=== PATIENT | female | born 1965 | race Caucasian/White ===

== ENCOUNTER 2020-09-15 10:25 | Outpatient (CLI) | payer OTHER, SELFPAY ==
[2020-09-15 11:11] LABS: Alanine Aminotransferase 19 U/L (4-35); Aspartate Amino Transferase 23 U/L (14-36)
== END 2020-09-15 10:26 | disposition home or self-care (01) ==
PROVIDERS: Visit Provider Podiatrist Foot & Ankle Surgery
DX: B35.1 Tinea unguium (principal)
CPT/HCPCS: 36415; 84450; 84460

== ENCOUNTER 2021-08-15 12:48 | Emergency (ER) | payer OTHER, SELFPAY ==
--- NOTE | ~2021-08-15 | CT_ITS ---
EXAMINATION: CT abdomen pelvis w con DATE: 08/15/2021 13:45 INDICATION: Right lower quadrant abdominal pain. TECHNIQUE: Computed tomography (CT) of the abdomen and pelvis was performed with 100 mL Omnipaque-350 intravenous contrast. Automated exposure control and iterative reconstruction technique were employe d. The dose-length product was 551.17 mGy-cm. COMPARISON: CT dated 08/31/2014 FINDINGS: Calcified right lower lobe nodule consistent with old granulomatous disease. Heart size is normal. No pericardial or pleural effusion. Liver, gallbladder, spleen, pancreas, left kidney and bilateral adr enal glands are normal. 2 mm nonobstructing stone at a lower pole calyx of the right kidney. Unchange d small region of cortical scarring at the upper pole of the right kidney. 9 mm cyst at the upper darinel e of the right kidney. Bowels including the appendix are normal. Small fat-containing umbilical herni a. Bladder, anteverted uterus and bilateral adnexa are unremarkable. No free intraperitoneal gas or f luid. No pathologically enlarged abdominal or pelvic lymphadenopathy. Mild to moderate disc height lo ss and 3 mm anterolisthesis L4 on L5 with severe bilateral facet osteoarthritis. Otherwise mild lumba r spondylosis. IMPRESSION: 1. No acute intra-abdominal/pelvic process. Normal appendix. 2. 2 mm nonobstructing stone at the lower pole of the right kidney. Reviewed, dictated and finalized at location A.
[2021-08-15 13:03] VITALS: BP 158/97; PULSE 84; RESP 18; TEMP 36.8; O2SAT 93
--- NOTE | 2021-08-15 13:11 | PC.NURSE ---
patient unable to urinate at this time, declines straight cath.
[2021-08-15 13:13] LABS: Basophils Absolute Auto 0.1 K/mm3 (0.0-0.1); Basophils Percent Auto 0.6 % (0.2-1.2); Eosinophils Absolute Auto 0.2 K/mm3 (0-0.3); Hematocrit 46.7 % (37.0-47.0); Immature Granulocyte Absolute 0.04 K/mm3 (0.00-0.031); Immature Granulocyte Percent A 0.4 % (0-0.5); Lymphocytes Absolute Auto 3.76 K/mm3 (0.9-3.2); Lymphocytes Percent Auto 34.9 % (18.3-44.2); Mean Corpuscular HGB Conc 34.3 g/dl (32-36); Mean Corpuscular Hemoglobin 31.5 pg (26-34); Mean Corpuscular Volume 91.9 fl (80-100); Mean Platelet Volume 9.4 fl (7.4-10.4); Monocytes Absolute Auto 0.7 K/mm3 (0.1-0.6); Monocytes Percent Auto 6.3 % (2.6-8.5); Neutrophils Percent Auto 55.8 % (45.5-73.1); Platelet Count Result 246 k/mm3 (150-375); Red Blood Count 5.08 M/mm3 (4.2-5.4); Red Cell Distribution Width 12.4 % (11.5-14.5); White Blood Count 10.8 K/mm3 (4.5-10.0)
[2021-08-15] MEDS: SODIUM CHLORIDE 0.9% IV 1,000 ML 999 ML IV CONT (13:23)
[2021-08-15] MEDS: MORPHINE SULFATE (*CRX) 4 MG/ML INJ IV PUSH (13:23)
[2021-08-15] MEDS: ONDANSETRON INJ 4 MG/2 ML VIAL IV PUSH (13:23)
[2021-08-15 13:24] LABS: Alanine Aminotransferase 29 U/L (4-35); Albumin Level 4.5 g/dL (3.5-5.1); Alkaline Phosphatase 81 U/L (38-126); Anion Gap 10 mmol/L (8-16); Aspartate Amino Transferase 31 U/L (14-36); Bilirubin,Total 0.4 mg/dL (0.2-1.3); Blood Urea Nitrogen 14 mg/dL (7-17); Carbon Dioxide 23 mmol/L (22-30); Chloride 106 mmol/L (98-107); Estimated CRCL calculation 62 ml/min; Estimated Glomerular Filt Rate > 60; Glucose 97 mg/dL (65-110); Lipase 178 U/L (23-300); Potassium 4.2 mmol/L (3.4-5.0); Sodium 139 mmol/L (137-145)
[2021-08-15 15:22] LABS: Add Urine Microscopic? YES; Appearance Urine Cloudy (Clear); Bilirubin Urine Negative (Negative); Blood Urine Negative (Negative); Color Urine Straw (Yellow); Glucose Urine UA Negative (Negative); Ketones Urine Negative (Negative); Leukocyte Esterase Ur Negative LEU/UL (Negative); Mucus Urine Rare /lpf; Nitrate Urine Negative (Negative); Protein Urine Negative (Negative); Squamous Epithelial Cell Urine Many /hpf (Few); Urobilinogen Urine Negative mg/dL (<2.0); WBC Urine 0-3 /hpf
[2021-08-15 15:23] LABS: Specific Grav Ur 1.032 (1.001-1.035)
--- NOTE | 2021-08-15 16:02 | ED.ABDPAIN ---
HPI - Abdominal Pain General Chief Complaint: Abdominal Pain Stated Complaint: right side hurts Time Seen by Provider: 08/15/21 12:58 History of Present Illness HPI narrative: Patient is a 56-year-old female who presents ER with right-sided abdominal pain. Sudden onset. Moving right lower quadrant. Associated with some nausea but no vomiting. No fevers or chills or sweats. No urinary frequency urgency or dysuria. Does have history of kidney stones in the past. Has not found any alleviating factors. Pain is worse with twisting and moving. Related Data Allergies Allergy/AdvReac Type Severity Reaction Status Date / Time codeine Allergy Unknown Nausea and Verified 08/15/21 13:10 Vomiting meperidine Allergy Unknown Unknown Verified 08/15/21 13:10 Review of Systems Review of Systems: All systems reviewed & are unremarkable except as noted in HPI and below Constitutional: Constitutional: Denies chills, Denies fever(s) and Denies weakness ENT: Denies nasal congestion and Denies sore throat Respiratory: Respiratory: Denies cough, Denies dyspnea and Denies wheezing Gastrointestinal: Gastrointestinal: Reports abdominal pain, Denies diarrhea, Reports nausea and Denies vomiting Genitourinary: Genitourinary: Denies nocturia, Denies dysuria and Denies flank pain PMFSH Past Medical History Medical History (Updated 08/15/21 @ 16:08 by Simone Knox MD) Anxiety Asthma Depression Hypertension Surgical History Surgical History (Updated 08/15/21 @ 16:06 by Simone Knox MD) History of tubal ligation Hx of tonsillectomy Social History Social History (Updated 08/15/21 @ 16:06 by Simone Knox MD) Smoking status: Never smoker Exam Narrative: GENERAL: Well-appearing, well-nourished, and in no acute distress. HEAD: Normocephalic, atraumatic. CHEST: Clear to auscultation. No respiratory distress. HEART: Regular rate and rhythm. Normal peripheral pulses. ABDOMEN: Soft, tender palpation right lower quadrant, nondistended, normal active bowel sounds. EXTREMITIES: Normal range of motion. No edema. SKIN: Warm, dry, no rash. NEURO: Alert and oriented x3. PSYCH: Normal mood and affect. Course Course Emergency Course: Patient resting comfortably, received pain medication, repeat evaluation of the abdomen reveals a soft nontender abdomen without right lower tenderness. Patient could have passed a kidney stone. She may have just had intestinal cramping. Imaging unremarkable. Vital Signs Vital signs: Vital Signs Temperature 98.3 F 08/15/21 13:03 Pulse Rate 84 08/15/21 13:03 Respiratory Rate 18 08/15/21 13:03 Blood Pressure 158/97 H 08/15/21 13:03 Pulse Oximetry 93 08/15/21 13:03 Temperature 98.3 F 08/15/21 13:03 Pulse Rate 84 08/15/21 13:03 Respiratory Rate 18 08/15/21 13:03 Blood Pressure 158/97 H 08/15/21 13:03 Pulse Oximetry 93 08/15/21 13:03 MDM - Abdominal Pain Lab Data Result diagrams: 08/15/21 13:03 08/15/21 13:03 Labs: Lab Results 08/15/21 08/15/21 08/15/21 Range/Units 13:03 13:03 15:08 WBC 10.8 H (4.5-10.0) K/mm3 RBC 5.08 (4.2-5.4) M/mm3 Hgb 16.0 H (12.0-15.0) g/dL Hct 46.7 (37.0-47.0) % MCV 91.9 (80-100) fl MCH 31.5 (26-34) pg MCHC 34.3 (32-36) g/dl RDW 12.4 (11.5-14.5) % Plt Count 246 (150-375) k/mm3 MPV 9.4 (7.4-10.4) fl Immature Gran % (Auto) 0.4 (0-0.5) % Neut % (Auto) 55.8 (45.5-73.1) % Lymph % (Auto) 34.9 (18.3-44.2) % [place] % (Auto) 6.3 (2.6-8.5) % Eos % (Auto) 2.0 (0-4.4) % Baso % (Auto) 0.6 (0.2-1.2) % Lymph # (Auto) 3.76 H (0.9-3.2) K/mm3 [place] # (Auto) 0.7 H (0.1-0.6) K/mm3 Eos # (Auto) 0.2 (0-0.3) K/mm3 Baso # (Auto) 0.1 (0.0-0.1) K/mm3 Abs Immat Gran (auto) 0.04 H (0.00-0.031) K/mm3 Absolute Neuts (auto) 6.0 (1.3-6.7) K/mm3 Absolute Nucleated RBC 0.0 (0.0-0.012) K/mm3 Nucleated R
[2021-08-15 16:37] VITALS: BP 142/70; PULSE 78; RESP 16; O2SAT 100
== END 2021-08-15 16:38 | disposition home or self-care (01) ==
PROVIDERS: Emergency Provider Emergency Medicine
DX: R10.31 Right lower quadrant pain (principal); I10 Essential (primary) hypertension; J45.909 Unspecified asthma, uncomplicated; Z87.442 Personal history of urinary calculi
CPT/HCPCS: 36415; 74177; 80053; 81001; 83690; 85025; 96361; 96374; 96375; 99284; J2270; J2405; J7030; Q9967

== ENCOUNTER → 2022-07-13 15:52 | Outpatient (CLI) | payer OTHER, SELFPAY ==
--- NOTE | ~2022-07-13 | CT_ITS ---
EXAMINATION: CT lung screening DATE: 07/13/2022 16:05 INDICATION: Personal history of tobacco dependence. Lung cancer screening. TECHNIQUE: Computed tomography (CT) of the chest was performed without intravenous contrast. The dose -length product was 101.61 mGy-cm. Automated exposure control and iterative reconstruction technique were employed. COMPARISON: None FINDINGS: No thoracic lymphadenopathy. Heart size is normal. No significant pleural or pericardial ef fusion. The upper abdomen is unremarkable. There is apical pleural thickening/scarring. There is emph ysema. No endobronchial lesions. There is a 2-3 mm right upper lobe nodule. There is a calcified gran uloma in the right lower lobe. Mild thoracic spondylosis. IMPRESSION: 1. Lung-RADS category 2: Benign appearance or behavior. Continue annual screening with noncontrast lo w-dose chest CT in 12 months. Reviewed, dictated and finalized at location A. IMPRESSION: 1. Lung-RADS category 2: Benign appearance or behavior. Continue annual screeni ng with noncontrast low-dose chest CT in 12 months.
== END ==
DX: Z12.2 Encounter for screening for malignant neoplasm of respiratory organs (principal); Z87.891 Personal history of nicotine dependence
CPT/HCPCS: 71271

== ENCOUNTER 2023-03-23 13:16 | Observation (INO) | payer OTHER, SELFPAY ==
--- NOTE | ~2023-03-23 | XR_ITS ---
EXAMINATION: XR chest 2V DATE: 03/23/2023 INDICATION: Shortness of breath and cough. TECHNIQUE: Frontal and lateral views of the chest were obtained. COMPARISON: None. FINDINGS: There is mild scarring at the lung apices. No pleural effusion or pneumothorax. The heart s ize is normal. IMPRESSION: 1. Mild scarring at the lung apices. Reviewed, dictated and finalized at location A.
--- NOTE | ~2023-03-23 | US_ITS ---
Duplex Sonography of the bilateral lower extremities: Indication: Swelling Sagittal and transverse B-mode images as well as color-flow imaging were performed on the right and l eft femoral and popliteal veins. B-mode examination was done without and with compression in the tra nsverse plane. There is good visualization of the bilateral common femoral, proximal profunda femora l, superficial femoral, greater saphenous, and popliteal veins. Normal flow was seen on color-flow im aging. Normal compressibility was demonstrated. Visualized calf veins are also patent bilaterally. Impression: No evidence of deep vein thrombosis involving the bilateral lower extremities. Reviewed, dictated and finalized at location M. Impression: No evidence of deep vein thrombosis involving the bilateral lower e xtremities.
--- NOTE | 2023-03-23 16:33 | ECG_ITS ---
Measurements Intervals [place] Rate: 135 P: [place]: 0 QRS: 20 QRSD: 85 T: 45 QT: 292 QTc: 438 Interpretive Statements ATRIAL FIBRILLATION WITH RAPID VENTRICULAR RESPONSE NONSPECIFIC ST & T-WAVE ABNORMALITY ABNORMAL RHYTHM ECG NO PREVIOUS ECG AVAILABLE FOR COMPARISON Electronically Signed On 04-05-2023 13:02:34 CDT by Teri James M.D.
[2023-03-23 20:02] VITALS: PULSE 73; O2SAT 96
--- NOTE | 2023-03-23 20:13 | ADMGEN ---
This patient, Kacey Celaya, was admitted to IMU Room 206-02 on 03/23/231919 . Patient/family oriented to hospital policies and general routines including ID bracelet, bed and alarms, visiting hours, pain management, procedures, bathroom and other care routines, personal items, smoking policy, room service/diet, and visiting hours. Information on how to activate the Rapid Response Team has been discussed. Patient/Family are encouraged to report perceived risks to care and to ask questions if they do not understand what they are told or what they should do.
[2023-03-23 20:58] VITALS: BP 141/76; PULSE 138; RESP 20; TEMP 36.4; O2SAT 97; BMI 32.0
[2023-03-23 21:10] VITALS: PULSE 70
[2023-03-23 23:41] VITALS: BP 109/57; PULSE 86; RESP 20; TEMP 36.4; O2SAT 98
[2023-03-24] VITALS (22 sets, daily range): BP systolic 110–156; BP diastolic 65–81; PULSE 58–90; RESP 16–20; TEMP 36.3–36.6; O2SAT 96–99
--- NOTE | 2023-03-24 | ECHO_ITS ---
Patient Info Name: Kacey Celaya Age: 57 years : 1965 Gender: Female Ht: 64 in Wt: 185 lbs BSA: 1.98 m2 HR: 89 bpm BP: 110 / 71 mmHg Heart Rhythm: Sinus Rhythm Technical Quality: Fair Exam Date: 03/24/2023 11:27 AM Exam Location: [facility] Patient Status: Inpatient Admit Date: 03/23/2023 Staff Ordering Physician: Nicole Osborne PA-C Management Planner: Domenico Lucas RDCS Attending Provider: Maliha Goldman MD Referring Physician: [place] JACK; Exam Type: CA echo doppler color flow Study Info Indications - CHF Complete two-dimensional, color flow and Doppler transthoracic echocardiogram is performed. Summary 1. Complete two-dimensional, color flow and Doppler transthoracic echocardiogram is performed. 2. Left ventricular chamber dimension is normal. 3. There is mildly increased left ventricular wall thickness. 4. Left ventricular systolic function is normal, estimated at 65-70%. 5. Right ventricular chamber dimension is mildly enlarged. 6. Right ventricular systolic function is normal. 7. Right atrial chamber dimension is mildly enlarged. 8. There is mild tricuspid valve regurgitation. 9. There is mild pulmonic regurgitation. Left Ventricle Left ventricular chamber dimension is normal. Left ventricular systolic function is normal, estimated at 65-70%. There is mildly increased left ventricular wall thickness. Right Ventricle Right ventricular chamber dimension is mildly enlarged. Right ventricular systolic function is normal. Left Atria Left atrial chamber dimension is normal. Right Atria Right atrial chamber dimension is mildly enlarged. Atrial Septum Intact interatrial septum visualized by color flow imaging. Aortic Valve The aortic valve is probable trileaflet. There is no aortic valve stenosis. There is no aortic valve regurgitation. Pulmonic Valve The pulmonic valve is not well visualized. There is mild pulmonic regurgitation. Mitral Valve There is trace mitral valve regurgitation. Tricuspid Valve There is mild tricuspid valve regurgitation. Pericardium/Pleural There is no pericardial effusion. Inferior Vena Cava Dilated inferior vena cava with >50% collapse upon inspiration consistent with elevated right atrial pressure, 8 mmHg. Aorta The aortic root size at the sinus of Valsalva is normal. Left Ventricular Outflow Tract Name Value Normal LVOT 2D LVOT Diameter 2.2 cm LVOT Doppler LVOT Peak Gradient 4 mmHg LVOT Mean Gradient 1 mmHg LVOT VTI 16 cm LVOT VTI/AV VTI Ratio 0.7 LVOT Stroke Volume 61 ml LVOT CO 4.3 l/min LVOT CI 2.2 l/min/m2 Pulmonic Valve Name Value Normal PV Doppler PV Peak Gradient 3 mmHg Mitral Valve
[2023-03-24 05:00] LABS: Hematocrit 43.3 % (37.0-47.0); Hemoglobin 14.4 g/dL (12.0-15.0); Mean Corpuscular HGB Conc 33.3 g/dl (32-36); Mean Corpuscular Hemoglobin 31.4 pg (26-34); Mean Corpuscular Volume 94.5 fl (80-100); Mean Platelet Volume 9.9 fl (7.4-10.4); Platelet Count Result 191 k/mm3 (150-375); Red Blood Count 4.58 M/mm3 (4.2-5.4); Red Cell Distribution Width 12.9 % (11.5-14.5); White Blood Count 4.8 K/mm3 (4.5-10.0)
[2023-03-24 05:30] LABS: Alanine Aminotransferase 41 U/L (6-35); Albumin Level 4.1 g/dL (3.5-5.1); Alkaline Phosphatase 68 U/L (38-126); Anion Gap 6 mmol/L (8-16); Aspartate Amino Transferase 44 U/L (14-36); Bilirubin,Total 0.3 mg/dL (0.2-1.3); Blood Urea Nitrogen 16 mg/dL (7-17); Carbon Dioxide 26 mmol/L (22-30); Chloride 105 mmol/L (98-107); Estimated CRCL calculation 90 ml/min; Estimated Glomerular Filt Rate > 60; Glucose 156 mg/dL (65-110); Magnesium 2.1 mg/dL (1.6-2.3); Potassium 4.8 mmol/L (3.4-5.0); Sodium 137 mmol/L (137-145)
--- NOTE | 2023-03-24 05:55 | HP_ITS ---
DATE OF SERVICE: 03/23/2023 TIME OF EVALUATION: 1929 CHIEF COMPLAINT: Shortness of breath. HISTORY OF THE PRESENT ILLNESS: This is a pleasant 57-year-old female smoker with chronic obstructive pulmonary disease, hypertension, and hyperlipidemia who presented to the emergency department via private vehicle from work for evaluation of shortness of breath. The patient provides the following history. She has smoked 2 packs of cigarettes a day since the age of 17 and has only recently began having issues with shortness of breath on exertion. 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 Today while walking 30 feet to deliver an order she became extremely short of breath and wheezy and she felt as though she could not get in a deep breath. She also reports feelings of anxiety quite frequently and she wonders if her shortness of breath may be related to the anxiety. On arrival to the emergency department, she was given a DuoNeb and 40 mg of prednisone p.o. with some improvement in her breathing. Following the nebulizer, she did go into atrial fibrillation with rapid ventricular response with rates up into the 150s and she was then given 30 mg dose of oral diltiazem. She returned briefly into a normal sinus rhythm however she frequently goes back in to brief episodes or atrial fibrillation/flutter. At time she was noted to be bradycardic with rates as low as the 40s. When her heart rate does go up, she gets feelings of anxiety and mild fluttering and perhaps some increase in shortness of breath as well. She has no known history of cardiac dysrhythmia, cardiac disease, or sleep apnea. She denies paroxysmal nocturnal dyspnea, orthopnea, heavy snoring, and daytime somnolence. She does have intermittent lower extremity edema, which is not necessarily unusual for her. She denies calf pain, tenderness, and has no personal or family history of venous thromboembolism. She has occasional chills, but denies fever and sweats. She endorses mild sinus congestion, which is not unusual for her this time of year. On occasion, she has a dry smoker's cough. She has occasional nausea, but no vomiting or diarrhea. She denies sick contacts. She has no known history of thyroid disease. She denies significant caffeine and alcohol use. MEDICAL HISTORY: 1. Hypertension. 2. Hyperlipidemia. 3. Chronic obstructive pulmonary disease. 4. Tobacco dependence. 5. History of esophageal stricture. 6. Anxiety. SURGICAL HISTORY: 1. EGD with esophageal dilatation. 2. Exploratory laparoscopy. 3. Tonsillectomy. 4. Tubal ligation. FAMILY HISTORY: Significant for hypertension, heart disease SOCIAL HISTORY: The patient lives with her , Orion. She has smoked 2 packs of cigarettes a day since the age of 17. She denies alcohol and illicit substance use. She designates her as her surrogate decision maker and she wishes to be a full code. HOME MEDICATIONS: 1. Lisinopril 40 mg at bedtime. 2. Atorvastatin 40 mg at bedtime. 3. Tums 500 mg q.6 hours as needed for acid reflux. 4. Albuterol inhaler q.4 hours as needed for wheezing. ALLERGIES: CODEINE, MEPERIDINE, NICOTINE PATCH. PHYSICAL EXAMINATION: CURRENT VITAL SIGNS: Pulse 86, respiratory rate 20, blood pressure 109/57, pulse ox 98% on room air, temperature 97.6. GENERAL: Mildly ill-appearing female sitting up in bed, in no acute respiratory distress. HEENT: Normocephalic, atraumatic. She is wearing corrective lenses. Pupils are reactive. Extraocular motions intact. Sclerae anicteric. Oral mucosa moist. NECK: Supple. No JVD or ly
[2023-03-24 06:21] LABS: Thyroid Stimulating Hormone Reflex 0.599 uIU/mL (0.465-4.68)
[2023-03-24] MEDS: LEVALBUTEROL NEB 1.25 MG/3 ML INHALATION ×3 (08:11→21:01)
[2023-03-24] MEDS: IPRATROPIUM BR 0.02% INH SOLN 0.5 MG/2.5 ML VIAL INHALATION ×3 (08:11→21:01)
[2023-03-24] MEDS: predniSONE 20 MG TABLET 40 MG PO (08:27)
[2023-03-24] MEDS: ASPIRIN 81 MG CHEWABLE TABLET PO (08:27)
[2023-03-24] MEDS: ENOXAPARIN 40 MG/0.4 ML SYRINGE SUB-Q (09:13)
[2023-03-24] MEDS: ACETAMINOPHEN 325 MG TABLET 650 MG PO (09:56)
--- NOTE | 2023-03-24 10:07 | PM.CNCAR ---
Assessment and Plan Assessment and plan (1) Paroxysmal atrial fibrillation with RVR: Code(s): I48.0 - Paroxysmal atrial fibrillation Status: Acute Assessment and Plan: Patient with very frequent paroxysmal AFib with RVR with heart rates recently running in the 60s to over 200 beats per minute ranging from sinus rhythm to AFib. Patient highly symptomatic with recurrent episodes of atrial fibrillation. We discussed the concept of tachycardia bradycardia syndrome as she was noted to be bradycardic after receiving oral diltiazem 30 mg x 1 in the ER. Will be very cautious with AV ambar blocking agents. We discussed at length this concept and the potential need consider pacemaker implantation if she poorly tolerates any reasonable degree of rate control agents and or remains poorly controlled highly symptomatic AFib with RVR. At this time, no clear indication for pacemaker it we discussed this concern but woke attempt to manage medically given very frequent paroxysm of AFib. Discussed this balance of bleeding versus embolic stroke risk with systemic anticoagulation. We discussed in general potential increased embolic stroke risk, however, CHADS2 Vasc score 2 (female sex, hypertension) does not warrant systemic anticoagulation as her only other non sexual AV risk factors hypertension. Therefore aspirin 81 mg daily will be continued now. If any additional risk factors systemic anticoagulation with be advised. As cardioversion does not appear to have any significant role given the circumstances full systemic anticoagulation is not advised. DVT prophylaxis recommended nonetheless. 2D echocardiogram to assess LV size/function, chamber size, valve pathology pulmonary pressures. Recommendation follow-up review. After extensive discussion will cautiously reintroduce AV ambar blocking agents with metoprolol tartrate 12.5 mg twice daily. If this is adequate in suppressing AFib with RVR without unacceptable and or symptomatic bradycardia continue for now. Continue telemetry. Recommendation to follow pending patient's tolerance medical therapy as discussed. We discussed various options, medical management strategies depending on clinical circumstances as this is highly individual. We discussed the pathophysiology of atrial fibrillation in general. All questions answered patient and her 's satisfaction. They verbalized understanding and agreed with plan of care. No doubt, for COPD exacerbation is contributing as maybe contribute to exacerbation of RVR but this is not the primary explanation for AFib. We discussed the high likelihood of recurrence and need for ongoing monitoring and management clinically appropriate. TSH, electrolytes stable. Low sugar elevated initially, continue to monitor closely. Check hemoglobin A1c. If diabetes mellitus confirmed systemic anticoagulation will be advised either with Eliquis 5 mg twice daily or Xarelto 20 mg at bedtime with discontinuation of aspirin as her CHADS2 Vasc score would then be 3 placing her at higher embolic stroke risk. I spent 74 minutes in the care of this patient at bedside including discussion with patient and her , examination, chart review, medical decision-making, and documentation. (2) COPD exacerbation: Code(s): J44.1 - Chronic obstructive pulmonary disease with (acute) exacerbation Status: Acute Assessment and Plan: Continue bronchodilator therapy with ipratropium bromide, Xopenex, and prednisone 40 mg daily. Management per primary service. (3) Hypertension: Qualifiers: Hypertension type: primary hypertension Qualified Code(s): I10 - Essential (primary) hypertension Code(s): I10 - Essential (primary) hypertension Status: Acute Assessment and Plan: BP elevated but fair control overall. Resume home lisinopril 40 mg daily and monitor BP closely. (4) Mixed hyperlipidemia: Code(s): E78.2 - Mixed hyperlipidemia
[2023-03-24] MEDS: METOPROLOL TARTRATE 12.5 MG TABLET PO ×2 (10:34→20:39)
--- NOTE | 2023-03-24 12:26 | PM.IMPN ---
Progress Note: A&P Assessment and Plan (1) Hypertension: Qualifiers: Hypertension type: primary hypertension Qualified Code(s): I10 - Essential (primary) hypertension Code(s): I10 - Essential (primary) hypertension Status: Acute Assessment and Plan: Blood pressure reviewed 03/24 (2) YUVAL (obstructive sleep apnea): Code(s): G47.33 - Obstructive sleep apnea (adult) (pediatric) Status: Acute (3) Mixed hyperlipidemia: Code(s): E78.2 - Mixed hyperlipidemia Status: Acute (4) Tobacco abuse: Code(s): Z72.0 - Tobacco use Status: Acute (5) COPD exacerbation: Code(s): J44.1 - Chronic obstructive pulmonary disease with (acute) exacerbation Status: Acute Assessment and Plan: Prednisone, breathing treatments, Mucinex (6) Paroxysmal atrial fibrillation with RVR: Code(s): I48.0 - Paroxysmal atrial fibrillation Status: Acute Assessment and Plan: Appreciate cardiology consultation Start metoprolol, monitor Plan DVT prophylaxis with SCDs GI prophylaxis not indicated Code status full code Subjective Date/time seen: 03/24/23 12:26 Interval history: No overnight events noted. No chest pain or shortness of breath. No nausea, vomiting or diarrhea. No fevers or chills. Review of Systems Review of Systems: 12 point review of systems was assessed and was negative except as noted in the HPI Exam Narrative: Temp Pulse Resp BP Pulse Ox O2 Del Method 97.9 F 88 20 156/78 H 96 Room Air 03/24/23 08:00 03/24/23 10:34 03/24/23 08:26 03/24/23 08:00 03/24/23 08:11 03/24/23 08:11 General: No acute distress, alert and oriented per baseline HEENT: Atraumatic, normocephalic, mucous membranes moist CV: Irregularly irregular, S1, S2 Lungs: Wheezes throughout, no crackles, diminished air entry Abdomen: Soft, nontender, nondistended Extremities: Normal to inspection Skin: No rashes noted, no lesions or wounds seen Psych: Euthymic, normal affect Objective Data Vital Signs Vital Signs: Vital Signs - 24 hr 03/23/23 20:58 03/23/23 21:10 03/23/23 21:27 Temperature 97.6 F Pulse Rate 138 H 70 Respiratory Rate 20 Blood Pressure 141/76 H Pulse Oximetry 97 Oxygen Delivery Room Air 03/23/23 20:02 03/23/23 23:41 03/24/23 00:00 Temperature 97.6 F Pulse Rate 73 86 Respiratory Rate 20 Blood Pressure 109/57 L Pulse Oximetry 96 98 Oxygen Delivery Room Air Room Air 03/24/23 00:00 03/24/23 03:34 03/24/23 03:43 Temperature 97.6 F Pulse Rate 79 58 L Respiratory Rate 20 Blood Pressure 110/71 Pulse Oximetry 97 Oxygen Delivery Room Air 03/24/23 04:00 03/24/23 06:00 03/24/23 08:11 Temperature Pulse Rate 59 L 89 Respiratory Rate Blood Pressure Pulse Oximetry 96 Oxygen Delivery Room Air 03/24/23 08:11 03/24/23 08:26 03/24/23 08:00 Temperature 97.9 F Pulse Rate 71 80 68 Respiratory Rate 20 20 16 Blood Pressure 156/78 H Pulse Oximetry 99 Oxygen Delivery 03/24/23 10:34 03/24/23 08:00 03/24/23 10:00 Temperature Pulse Rate 88 90 85 Respiratory Rate Blood Pressure Pulse Oximetry Oxygen Delivery Intake/Output Intake/Output: Intake & Output 03/21/23 03/22/23 03/23/23 03/24/23 23:59 23:59 23:59 23:59 Intake Total 500 Output Total 800 Balance -300 Meds/Results Medications: Active Medications Generic Name Dose Route Start Last Admin Trade Name Freq PRN Reason Stop Dose Admin Acetaminophen 650 mg 03/23/23 21:07 03/24/23 09:56 Acetaminophen 325 Mg Tablet PO 650 mg Q6H PRN Administration PAIN/FEVER Albuterol 2 puff 03/24/23 12:11 Albuterol Sulfate (*Sp) Aerosol 1 Puff INHALATION Q4H PRN
[2023-03-24 12:43] LABS: Chloride 105 mmol/L (98-107); Potassium 3.9 mmol/L (3.4-5.0); Sodium 138 mmol/L (137-145)
[2023-03-24 12:44] LABS: Anion Gap 6 mmol/L (8-16); Blood Urea Nitrogen 18 mg/dL (7-17); Calcium 9.2 mg/dL (8.4-10.2); Carbon Dioxide 27 mmol/L (22-30); Estimated CRCL calculation 69 ml/min; Estimated Glomerular Filt Rate > 60; Glucose 79 mg/dL (65-110); Troponin I < 0.012 ng/mL (0.000-0.034)
[2023-03-24 12:45] LABS: Basophils Percent Auto 0.6 % (0.2-1.2); Eosinophils Percent Auto 4.6 % (0-4.4); Hematocrit 46.4 % (37.0-47.0); Hemoglobin 15.8 g/dL (12.0-15.0); Immature Granulocyte Absolute 0.02 K/mm3 (0.00-0.031); Immature Granulocyte Percent A 0.3 % (0-0.5); Lymphocytes Percent Auto 41.1 % (18.3-44.2); Mean Corpuscular HGB Conc 34.1 g/dl (32-36); Mean Corpuscular Hemoglobin 31.9 pg (26-34); Mean Corpuscular Volume 93.7 fl (80-100); Mean Platelet Volume 10.3 fl (7.4-10.4); Monocytes Percent Auto 10.5 % (2.6-8.5); Neutrophils Percent Auto 42.9 % (45.5-73.1); Platelet Count Result 206 k/mm3 (150-375); Red Blood Count 4.95 M/mm3 (4.2-5.4)
[2023-03-24 12:46] LABS: Eosinophils Absolute Auto 0.3 K/mm3 (0-0.3); Lymphocytes Absolute Auto 2.89 K/mm3 (0.9-3.2); Monocytes Absolute Auto 0.7 K/mm3 (0.1-0.6)
[2023-03-24] MEDS: CALCIUM CARBONATE (TUMS) 500 MG (200 MG ELEMENTAL) PO (18:21)
[2023-03-24] MEDS: ATORVASTATIN 40 MG TABLET PO (20:39)
[2023-03-24] MEDS: guaiFENesin 600 MG/DEXTROMETHORPHAN 30 MG SR TAB 12 HR 1 TAB PO (20:39)
[2023-03-24] MEDS: lisinopriL 20 MG TABLET 40 MG PO (20:39)
[2023-03-25] VITALS (13 sets, daily range): BP systolic 134–150; BP diastolic 67–81; PULSE 46–74; RESP 16–20; TEMP 35.8–36.7; O2SAT 97–99
[2023-03-25] MEDS: LEVALBUTEROL NEB 1.25 MG/3 ML INHALATION ×3 (02:30→13:06)
[2023-03-25] MEDS: IPRATROPIUM BR 0.02% INH SOLN 0.5 MG/2.5 ML VIAL INHALATION ×3 (02:31→13:07)
[2023-03-25] MEDS: CALCIUM CARBONATE (TUMS) 500 MG (200 MG ELEMENTAL) PO ×2 (04:06→10:34)
[2023-03-25 04:41] LABS: Basophils Percent Auto 0.2 % (0.2-1.2); Eosinophils Percent Auto 0.1 % (0-4.4); Hematocrit 41.8 % (37.0-47.0); Hemoglobin 13.8 g/dL (12.0-15.0); Immature Granulocyte Absolute 0.05 K/mm3 (0.00-0.031); Immature Granulocyte Percent A 0.5 % (0-0.5); Lymphocytes Percent Auto 26.2 % (18.3-44.2); Mean Corpuscular Hemoglobin 31.6 pg (26-34); Mean Corpuscular Volume 95.7 fl (80-100); Mean Platelet Volume 9.7 fl (7.4-10.4); Monocytes Percent Auto 9.7 % (2.6-8.5); Neutrophils Absolute Auto 6.5 K/mm3 (1.3-6.7); Neutrophils Percent Auto 63.3 % (45.5-73.1); Platelet Count Result 182 k/mm3 (150-375); Red Blood Count 4.37 M/mm3 (4.2-5.4); Red Cell Distribution Width 12.9 % (11.5-14.5); White Blood Count 10.3 K/mm3 (4.5-10.0)
[2023-03-25 04:52] LABS: Alanine Aminotransferase 35 U/L (6-35); Albumin Level 3.9 g/dL (3.5-5.1); Alkaline Phosphatase 56 U/L (38-126); Anion Gap 5 mmol/L (8-16); Aspartate Amino Transferase 32 U/L (14-36); Bilirubin,Total 0.3 mg/dL (0.2-1.3); Blood Urea Nitrogen 17 mg/dL (7-17); Calcium 9.3 mg/dL (8.4-10.2); Carbon Dioxide 27 mmol/L (22-30); Chloride 106 mmol/L (98-107); Estimated CRCL calculation 79 ml/min; Estimated Glomerular Filt Rate > 60; Glucose 110 mg/dL (65-110); Potassium 4.3 mmol/L (3.4-5.0); Sodium 138 mmol/L (137-145)
[2023-03-25] MEDS: ENOXAPARIN 40 MG/0.4 ML SYRINGE SUB-Q (08:32)
[2023-03-25] MEDS: predniSONE 20 MG TABLET 40 MG PO (08:32)
[2023-03-25] MEDS: ASPIRIN 81 MG CHEWABLE TABLET PO (08:32)
[2023-03-25] MEDS: METOPROLOL TARTRATE 12.5 MG TABLET PO (08:32)
[2023-03-25] MEDS: guaiFENesin 600 MG/DEXTROMETHORPHAN 30 MG SR TAB 12 HR 1 TAB PO (08:33)
[2023-03-25] MEDS: ALPRAZolam (*CRX) 0.125 MG TABLET PO (10:34)
--- NOTE | 2023-03-25 10:44 | PM.PNCARD ---
Progress Note: A&P Assessment and Plan (1) Paroxysmal atrial fibrillation with RVR: Code(s): I48.0 - Paroxysmal atrial fibrillation Status: Acute Assessment and Plan: Patient with very frequent paroxysmal AFib with RVR with heart rates recently running in the 60s to over 200 beats per minute ranging from sinus rhythm to AFib. Patient highly symptomatic with recurrent episodes of atrial fibrillation. Caution with AV ambar blocking agents as she became bradycardic after receiving IV diltiazem in the ED. So far she has not had any significant bradycardia or pauses on low dose metoprolol. Heart rate generally in the 50's but down to 40's during hours of sleep. BP stable. Continue metoprolol 12.5mg q12h. 14 day outpatient engine monitor at discharge. OK for discharge home today. Low sugar elevated initially, continue to monitor closely. Check hemoglobin A1c. If diabetes mellitus confirmed systemic anticoagulation will be advised either with Eliquis 5 mg twice daily or Xarelto 20 mg at bedtime with discontinuation of aspirin as her CHADS2 Vasc score would then be 3 placing her at higher embolic stroke risk. Echo showed normal LVSF, EF 65 - 70%. No significant valve pathology. (2) COPD exacerbation: Code(s): J44.1 - Chronic obstructive pulmonary disease with (acute) exacerbation Status: Acute Assessment and Plan: Continue bronchodilator therapy with ipratropium bromide, Xopenex, and prednisone 40 mg daily. Management per primary service. (3) Hypertension: Qualifiers: Hypertension type: primary hypertension Qualified Code(s): I10 - Essential (primary) hypertension Code(s): I10 - Essential (primary) hypertension Status: Acute Assessment and Plan: BP elevated but fair control overall. Resume home lisinopril 40 mg daily and monitor BP closely. (4) Mixed hyperlipidemia: Code(s): E78.2 - Mixed hyperlipidemia Status: Acute Assessment and Plan: Continue atorvastatin 40 mg at bedtime. Check lipid panel. (5) YUVAL (obstructive sleep apnea): Code(s): G47.33 - Obstructive sleep apnea (adult) (pediatric) Status: Acute Assessment and Plan: Outpatient workup needs formal sleep study evaluation. Presence of underlying untreated YUVAL certainly will increased risk for any arrhythmia as well as atrial fibrillation recurrence. (6) Tobacco abuse: Code(s): Z72.0 - Tobacco use Status: Acute Assessment and Plan: Smoking cessation counseling performed. Subjective Date/time seen: 03/25/23 10:44 Cardiology follow up for atrial fibrillation Interval history: She is feeling well today. Has complaint of acid reflux. No palpitations, chest pain, shortness of breath, swelling. Eager to go home. Review of Systems Review of Systems: Remainder of the review of systems is otherwise negative aside from that noted in the HPI. All systems reviewed & are unremarkable except as noted in HPI and below Constitutional: Constitutional: Reports as per HPI and Reports no additional constitutional complaints Eyes: Eyes: Reports as per HPI and Reports no additional eye complaints ENT: Reports system reviewed and no additional complaints, except as documented and Reports as per HPI Cardiovascular: Cardiovascular: Reports as per HPI and Reports no additional cardiovascular complaints Respiratory: Respiratory: Reports as per HPI and Reports no additional respiratory complaints Gastrointestinal: Gastrointestinal: Reports as per HPI and Reports no additional gastrointestinal complaints Genitourinary: Genitourinary: Reports as per HPI Musculoskeletal: Musculoskeletal: Reports no additional musculoskeletal complaints and Reports as per HPI Integumentary/Breasts: Skin/Breast: Reports system reviewed and no additional complaints, except as docu and Reports as per HPI Neurologic: Reports system reviewed and no additional compla
[2023-03-25] MEDS: PANTOPRAZOLE 40 MG TABLET PO (11:42)
[2023-03-25 11:43] LABS: Hemoglobin A1C 5.4 % (<5.7)
--- NOTE | 2023-03-25 13:31 | PM.DS ---
DS: Admitting Diagnosis Discharge Date 03/25/23 Admitting Diagnosis sob DS: Discharge Diagnosis Discharge Diagnosis (1) Hypertension: Qualifiers: Hypertension type: primary hypertension Qualified Code(s): I10 - Essential (primary) hypertension Code(s): I10 - Essential (primary) hypertension Status: Acute Assessment and Plan: Blood pressure reviewed 03/24 (2) YUVAL (obstructive sleep apnea): Code(s): G47.33 - Obstructive sleep apnea (adult) (pediatric) Status: Acute (3) Mixed hyperlipidemia: Code(s): E78.2 - Mixed hyperlipidemia Status: Acute (4) Tobacco abuse: Code(s): Z72.0 - Tobacco use Status: Acute (5) COPD exacerbation: Code(s): J44.1 - Chronic obstructive pulmonary disease with (acute) exacerbation Status: Acute Assessment and Plan: Prednisone, breathing treatments, Mucinex (6) Paroxysmal atrial fibrillation with RVR: Code(s): I48.0 - Paroxysmal atrial fibrillation Status: Acute Assessment and Plan: Appreciate cardiology consultation Start metoprolol, monitor Plan DVT prophylaxis with SCDs GI prophylaxis not indicated Code status full code DS: Summary Hospital Course Hospital Course: 57-year-old female with history of tobacco dependence, COPD, hypertension hyperlipidemia is presenting for evaluation of shortness of breath. She states she has also been having palpitations that she was initially concerned or anxiety. However, she has also been wheezing and noted some chest tightness. Cardiology was consulted and started her on a low-dose of metoprolol. Symptoms were thought to be secondary to AFib with RVR versus tachy-michelle syndrome. She was not a candidate for anticoagulation an echo was within normal limits. A1c was 5.4. Therefore they recommended discharge home with an event monitor and outpatient follow-up with Cardiology. COPD exacerbation dramatically improved with prednisone and nebulizer treatments. See above and med rec for details. Smoking cessation recommended and discussed with patient extensively. Time Spent with Patient Time attestation: Total time spent providing and/or coordinating discharge services: Exam Narrative: Temp Pulse Resp BP Pulse Ox O2 Del Method 98.0 F 55 L 16 148/79 H 98 Room Air 03/25/23 12:03/25/23 12:00 03/25/23 12:03/25/23 12:03/25/23 12:03/25/23 06:50 General: Patient resting comfortably in bed, no acute distress HEENT: Atraumatic, normocephalic, mucous membranes moist CV: Regular rate and rhythm, S1, S2, no murmurs rubs or gallops noted Lungs: Clear to auscultation bilaterally, no rales or crackles noted, no wheezes, good air entry Abdomen: Soft, nontender, nondistended Extremities: Normal to inspection, no edema noted Skin: No rashes noted, no lesions or wounds seen Psych: Euthymic, normal affect Neuro: Cranial nerves 2-12 grossly intact, strength 5/5 upper and lower extremities noted DS: Data Data Completed and Pending Labs on day of discharge: Labs from last 24 hours 03/25/23 03/25/23 04:25 04:22 WBC 10.3 H RBC 4.37 Hgb 13.8 Hct 41.8 MCV 95.7 MCH 31.6 MCHC 33.0 RDW 12.9 Plt Count 182 MPV 9.7 Immature Gran % (Auto) 0.5 Neut % (Auto) 63.3 Lymph % (Auto) 26.2 [place] % (Auto) 9.7 H Eos % (Auto) 0.1 Baso % (Auto) 0.2 Lymph # (Auto) 2.70 [place] # (Auto) 1.0 H Eos # (Auto) 0.0 Baso # (Auto) 0.0 Abs Immat Gran (auto) 0.05 H Absolute Neuts (auto) 6.5 Absolute Nucleated RBC 0.0 Nucleated RBC % 0.0 Sodium 138 Potassium 4.3 Chloride 106 Carbon Dioxide 27 Anion Gap 5 L BUN 17 Creatinine 0.70 Estim Creat Clear Calc 79 Estimated GFR > 60 Glucose 110 Hemoglobin
== END 2023-03-25 13:57 | disposition home or self-care (01) ==
LOC: ANHED 17:18 → ANHIMU 19:29
PROVIDERS: Nurse Practitioner; Physician Assistant; Admitting Provider Internal Medicine; Emergency Provider Internal Medicine; Visit Provider Student in an Organized Health Care Education/Training Program
DX: J44.1 Chronic obstructive pulmonary disease with (acute) exacerbation (principal); I10 Essential (primary) hypertension; G47.33 Obstructive sleep apnea (adult) (pediatric); E78.2 Mixed hyperlipidemia; J02.9 Acute pharyngitis, unspecified; R68.83 Chills (without fever); R09.81 Nasal congestion; I48.0 Paroxysmal atrial fibrillation; R00.1 Bradycardia, unspecified; R60.0 Localized edema; J98.4 Other disorders of lung; F41.9 Anxiety disorder, unspecified; I07.1 Rheumatic tricuspid insufficiency; I37.1 Nonrheumatic pulmonary valve insufficiency; F17.210 Nicotine dependence, cigarettes, uncomplicated; F12.90 Cannabis use, unspecified, uncomplicated; Z79.51 Long term (current) use of inhaled steroids; Z79.899 Other long term (current) drug therapy
CPT/HCPCS: 36415; 71046; 80048; 80053; 83036; 83735; 84443; 84484; 85025; 85027; 93005; 93306; 93970; 94640; 94762; 96361; 96372; 96374; 99285; A9270; G0378; J1650; J7120; J7512

== ENCOUNTER 2023-05-13 14:12 | Outpatient (CLI) | payer OTHER, SELFPAY ==
--- NOTE | ~2023-05-13 | US_ITS ---
EXAMINATION: US venous doppler UE LT DATE: 05/13/2023 15:02 INDICATION: Left upper limb pain. TECHNIQUE: Grayscale ultrasound images without and with compression and Doppler ultrasound images of the left upper extremity veins were obtained. COMPARISON: None. FINDINGS: The visualized portions of the left internal jugular vein, subclavian vein, axillary vein, brachial v eins, basilic vein, cephalic vein, radial vein, and ulnar vein are patent. IMPRESSION: 1. No deep venous thrombosis. Reviewed, dictated and finalized at location B.
== END 2023-05-13 14:13 | disposition home or self-care (01) ==
PROVIDERS: Visit Provider Nurse Practitioner Adult Health
DX: M79.602 Pain in left arm (principal); R20.0 Anesthesia of skin
CPT/HCPCS: 93971

== ENCOUNTER 2023-07-10 18:14 | Emergency (ER) | payer OTHER, SELFPAY ==
[2023-07-10] VITALS (21 sets, daily range): BP systolic 119–153; BP diastolic 71–107; PULSE 69–92; RESP 11–25; TEMP 36.8; O2SAT 96–100
--- NOTE | ~2023-07-10 | XR_ITS ---
EXAMINATION: XR chest 1V portable Exam Date/Time: 07/10/2023 18:52 CDT HISTORY: chest pain Comparison: 03/23/2023. RESULT: Lines, tubes, and devices: None. Lungs and pleura: Clear. Cardiomediastinal silhouette: Stable. Other: No acute osseous or upper abdominal finding. IMPRESSION: No acute cardiopulmonary process. Reviewed, dictated and finalized at location K.
--- NOTE | ~2023-07-10 | CT_ITS ---
EXAMINATION: CTA chest PE protocol DATE: 07/10/2023 20:54 INDICATION: chest pain TECHNIQUE: Computed tomography angiography (CTA) of the chest was performed with 100 mL Omnipaque-350 intravenous contrast timed to evaluate the pulmonary arteries. Coronal maximum intensity projection 3D-reconstructions were created by the technologist. The dose-length product (DLP) was 673.71 mGy-cm. Automated exposure control and iterative reconstruction technique were employed. COMPARISON: X-ray chest, same date; CT lung screening 07/13/2022. FINDINGS: Lung parenchyma and airways: Stable 2 mm right upper lobe nodule. Granulomatous calcification. Pleura: Unremarkable. Thoracic inlet, axillae and chest wall: Unremarkable. Thoracic aorta: Normal. Mediastinum: Normal. Heart and pericardium: Normal. Coronary artery calcifications: Absent. Upper abdomen: No significant finding. Bones: No acute osseous finding. Pulmonary arteries: Study quality: Adequate. No pulmonary emboli detected. IMPRESSION: No CT evidence of acute pulmonary embolus. No acute intrathoracic process detected. Reviewed, dictated and finalized at location K. IMPRESSION: No CT evidence of acute pulmonary embolus. No acute intrathoracic process detec dennis.
--- NOTE | 2023-07-10 18:24 | ECG_ITS ---
Measurements Intervals [place] Rate: 76 P: 22 WV: 133 QRS: 11 QRSD: 77 T: 6 QT: 371 QTc: 417 Interpretive Statements SINUS RHYTHM LOW QRS VOLTAGE IN PRECORDIAL LEADS [QRS DEFLECTION < 1.0 mV IN CHEST LEADS] SEPTAL MYOCARDIAL INFARCTION , OF INDETERMINATE AGE [40+ ms Q WAVE IN V1/V2] ABNORMAL ECG COMPARED TO ECG 03/23/2023 16:33:24 SINUS RHYTHM REPLACES ATRIAL FIBRILLATION Electronically Signed On 07-11-2023 13:28:42 CDT by Arie Meza M.D.
[2023-07-10 18:51] LABS: Basophils Absolute Auto 0.1 K/mm3 (0.0-0.1); Basophils Percent Auto 1.3 % (0.2-1.2); Eosinophils Absolute Auto 0.4 K/mm3 (0-0.3); Eosinophils Percent Auto 5.8 % (0-4.4); Hematocrit 41.6 % (37.0-47.0); Hemoglobin 13.9 g/dL (12.0-15.0); Immature Granulocyte Absolute 0.02 K/mm3 (0.00-0.031); Immature Granulocyte Percent A 0.3 % (0-0.5); Lymphocytes Absolute Auto 2.74 K/mm3 (0.9-3.2); Lymphocytes Percent Auto 40.5 % (18.3-44.2); Mean Corpuscular HGB Conc 33.4 g/dl (32-36); Mean Corpuscular Volume 92.7 fl (80-100); Mean Platelet Volume 9.2 fl (7.4-10.4); Monocytes Absolute Auto 0.7 K/mm3 (0.1-0.6); Monocytes Percent Auto 10.9 % (2.6-8.5); Neutrophils Absolute Auto 2.8 K/mm3 (1.3-6.7); Neutrophils Percent Auto 41.2 % (45.5-73.1); Platelet Count Result 217 k/mm3 (150-375); Red Blood Count 4.49 M/mm3 (4.2-5.4); Red Cell Distribution Width 12.2 % (11.5-14.5); White Blood Count 6.8 K/mm3 (4.5-10.0)
[2023-07-10] MEDS: ASPIRIN 81 MG CHEWABLE TABLET 324 MG PO (18:54)
[2023-07-10 19:01] LABS: Alanine Aminotransferase 28 U/L (6-35); Albumin Level 4.3 g/dL (3.5-5.1); Alkaline Phosphatase 58 U/L (38-126); Anion Gap 8 mmol/L (8-16); Aspartate Amino Transferase 31 U/L (14-36); Bilirubin,Total 0.5 mg/dL (0.2-1.3); Blood Urea Nitrogen 20 mg/dL (7-17); Calcium 9.8 mg/dL (8.4-10.2); Carbon Dioxide 25 mmol/L (22-30); Chloride 102 mmol/L (98-107); Estimated CRCL calculation 74 ml/min; Estimated Glomerular Filt Rate > 60; Glucose 136 mg/dL (65-110); Lipase 283 U/L (23-300); Potassium 3.9 mmol/L (3.4-5.0); Sodium 135 mmol/L (137-145)
[2023-07-10 19:02] LABS: INR 1.1; Prothrombin Time 14.2 Seconds (11.1-14.7)
[2023-07-10 19:03] LABS: Partial Thromboplastin Time 31.8 SECONDS (22.3-36.8)
[2023-07-10 19:13] LABS: Troponin I < 0.012 ng/mL (0.000-0.034)
--- NOTE | 2023-07-10 20:29 | ED.CHESTPAIN ---
HPI - Chest Pain General Chief Complaint: Chest Pain Stated Complaint: chest pain post ablation Time Seen by Provider: 07/10/23 19:11 History of Present Illness HPI narrative: Patient presents the emergency department with her spouse after having chest tightness since 2 PM. She had a cardiac ablation for atrial fibrillation done a month ago. She has had burning epigastric pain since. Her grey inspector told her having burning pain for a week or 2 was normal but has been longer. She states she probably had a cardiac cath done a couple weeks prior to the ablation but is not 100% certain. Today when she is having episodes of left-sided chest tightness she also has diaphoresis and is feeling chilled. Denies headache nausea vomiting and abdominal pain. She states she also had a recent abnormal mammogram and is concerned that the discomfort might be related to that. Patient takes Eliquis daily. Had the ablation done at outside hospital Related Data Home Medications Medication Instructions Recorded Confirmed albuterol sulfate 90 mcg/actuation 2 inh inhalation Q4H PRN Wheezing 03/23/23 03/23/23 aerosol inhaler atorvastatin 40 mg tablet 40 mg PO HS 03/23/23 03/23/23 calcium carbonate 200 mg calcium 500 mg PO Q6H PRN Acid Reflux 03/23/23 03/23/23 (500 mg) chewable tablet (Tums) lisinopril 40 mg tablet 40 mg PO HS 03/23/23 03/23/23 Allergies Allergy/AdvReac Type Severity Reaction Status Date / Time codeine Allergy Unknown Nausea and Verified 07/10/23 18:24 Vomiting meperidine Allergy Unknown Unknown Verified 07/10/23 18:24 nicotine AdvReac Swelling Verified 07/10/23 18:24 Review of Systems Review of Systems: CONSTITUTIONAL: Denies fever, chills, or sweats. EYES: Denies visual changes, redness, or discharge. ENT: Denies rhinorrhea, congestion, sore throat, or otalgia. CARDIOVASCULAR: Denies palpitations, or edema. Has chest pain RESPIRATORY: Denies cough or dyspnea. GASTROINTESTINAL: Denies abdominal pain, nausea, vomiting, or diarrhea. GENITOURINARY: Denies dysuria or hematuria. SKIN: Denies rash or itching. MUSCULOSKELETAL: Denies back pain, joint pain, or myalgia. NEUROLOGIC: Denies headache, numbness, or weakness. PSYCHIATRIC: Denies anxiety or depression. [facility] Past Medical History Medical History (Updated 07/11/23 @ 00:25 by Felicity Gunderson MD) Anxiety Asthma Depression Hypertension Surgical History Surgical History History of tubal ligation Hx of tonsillectomy Family History Family History Sibling Cardiac defibrillator in place Grandparent Pancreatic cancer Colon cancer Social History Social History Smoking packs per day: 2 Smoking cigarettes per day: 40.0 Years smoked: 40 Smoking pack-years: 80.00 Smoking status: Current every day smoker Tobacco type: cigarettes Alcohol intake: never Substance use type: marijuana Lack of Transportation: No Lack of Food: Never True Current Housing: I Have Housing Concerned About Future Housing: No Difficulty Paying Gas/Electric Bills: No Difficulty Paying for Meds: No Currently Unemployed: No Education: High School Diploma/GED Difficulty w/ Childcare or Family Care: No Spiritual care concerns: No Exam Narrative: GENERAL: Well-appearing, well-nourished, and in no acute distress. HEAD: Normocephalic, atraumatic. EYES: PERRLA and EOMI. ENT: Nares clear, no rhinorrhea or epistaxis. Mucous membranes moist. NECK: Supple. CHEST: Clear to auscultation. No respiratory distress. HEART: Regular rate and rhythm. ABDOMEN: Soft, nontender, nondistended. EXTREMITIES: Normal range of motion. No edema. SKIN: Warm, dry, no rash. NEURO: No focal deficits. Alert and oriented x3. PSYCH: Normal mood and affect. Course Course Emergency Course: D
[2023-07-10 23:40] LABS: Troponin I < 0.012 ng/mL (0.000-0.034)
[2023-07-11] VITALS: PULSE 68; RESP 16
[2023-07-11 00:01] VITALS: BP 132/66; PULSE 68; RESP 10
[2023-07-11 00:15] VITALS: PULSE 69; RESP 15
== END 2023-07-11 00:35 | disposition home or self-care (01) ==
PROVIDERS: Emergency Medicine; Emergency Provider Emergency Medicine
DX: R07.89 Other chest pain (principal); I48.0 Paroxysmal atrial fibrillation; J45.909 Unspecified asthma, uncomplicated; I10 Essential (primary) hypertension; F17.210 Nicotine dependence, cigarettes, uncomplicated; Z79.82 Long term (current) use of aspirin; R94.31 Abnormal electrocardiogram [ECG] [EKG]
CPT/HCPCS: 36415; 71045; 71275; 80053; 83690; 84484; 85025; 85610; 85730; 93005; 99284; A9270; Q9967

== ENCOUNTER 2024-07-06 16:30 | Emergency (ER) | payer OTHER, SELFPAY ==
--- NOTE | ~2024-07-06 | US_ITS ---
EXAMINATION: US pelvic complete DATE: 07/06/2024 20:13 INDICATION: heavy vaginal bleeding, post-menopause TECHNIQUE: Multiple transabdominal sonographic images of the pelvis were obtained. COMPARISON: None. FINDINGS: Uterus: 6.3 x 3.7 x 5.4 cm. Endometrial complex measures 4 mm. Right Ovary: Not visualized. Left Ovary: Not visualized. There is no free fluid in the pelvis. IMPRESSION: Bilateral ovaries not visualized in this transabdominal examination. Sonographically normal-appearing uterus and endometrium. Reviewed, dictated and finalized at location K.
--- NOTE | ~2024-07-06 | CT_ITS ---
EXAMINATION: CT abdomen pelvis w con DATE: 07/06/2024 21:10 INDICATION: heavy vaginal bleeding, post menopause TECHNIQUE: Computed tomography (CT) of the abdomen and pelvis was performed with 100 mL Omnipaque-350 intravenous contrast. Automated exposure control and iterative reconstruction technique were employe d. The dose-length product was 1180.19 mGy-cm. COMPARISON: 08/15/2021; ultrasound pelvis 07/06/2024. FINDINGS: Lower thorax: Calcified right lower lobe granuloma. Mild coronary artery calcifications. Liver: Normal. Biliary/Gallbladder: Gallbladder is normal. No bile duct dilation. Pancreas: No mass or duct dilation. Spleen: Normal. Adrenals:No mass. Kidneys: No suspicious mass, obstructing stone, or hydronephrosis simple left upper pole cyst. 3 mm c alcification in the right renal pelvis GI tract: Moderate gastric distention. No small or large bowel dilation. Normal appendix. Mesentery/Peritoneum: No ascites, mass, or free air. Retroperitoneum: No mass. Atherosclerotic abdominal aortic and/or arterial calcifications. Pelvis: Normal uterus and bilateral ovaries. Empty urinary bladder. Prominent pelvic veins. Soft Tissues: Soft tissues and body wall unremarkable. Bones: No acute osseous finding. Grade 1 anterolisthesis at L4-5. IMPRESSION: Moderate gastric distention. 3 mm stone in the right renal pelvis, without CT findings of obstructive uropathy. Prominent pelvic veins as can be seen with pelvic congestion syndrome. Correlate clinically for persi stent dull pelvic pain lasting > 6 months, dysmenorrhea, dyspareunia, postcoital ache, and urinary sy mptoms. Reviewed, dictated and finalized at location K. IMPRESSION: Moderate gastric distention. 3 mm stone in the right renal pelvis, without CT findings of obstructive uropat hy. Prominent pelvic veins as can be seen with pelvic congestion syndrome. Correlat e clinically for persistent dull pelvic pain lasting > 6 months, dysmenorrhea, dyspareunia, postcoital ache, and urinary symptoms.
[2024-07-06 16:35] VITALS: BP 165/110; PULSE 73; RESP 20; TEMP 36.3; O2SAT 99
[2024-07-06 18:33] LABS: Add Urine Microscopic? YES; Appearance Urine Turbid (Clear); Bacteria Urine None Seen /hpf; Bilirubin Urine Negative (Negative); Blood Urine 3+ (Negative); Glucose Urine UA Negative (Negative); Ketones Urine Negative (Negative); Leukocyte Esterase Ur 1+ LEU/UL (Negative); Nitrate Urine Negative (Negative); Non Pathogenic Casts 0-2; Protein Urine 2+ mg/dL (Negative); RBC Urine >100 /hpf (0-2); Specific Grav Ur 1.019 (1.001-1.035); Squamous Epithelial Cell Urine None Seen /hpf (Few); Urobilinogen Urine 0.2 mg/dL (<2.0); WBC Urine 0-5 /hpf (0-3); pH Urine 8.5 (5.0-9.0)
[2024-07-06 18:34] LABS: Color Urine Light Red (Yellow); Need Manual Microscopic Reviewed
--- NOTE | 2024-07-06 19:54 | ED.FEMALEGU ---
HPI - Female Genitourinary General Chief complaint: Urogenital-Female <Esme Lyons APRN - Last Filed: 07/06/24 20:17> Stated complaint: bleeding with urination <Esme Lyons APRN - Last Filed: 07/06/24 20:17> Time Seen by Provider: 07/06/24 19:40 <Esme Lyons APRN - Last Filed: 07/06/24 20:17> Focused HPI: Patient is a 59-year-old female who presents to the ER with vaginal bleeding. She reports she went to the doctor 3 days ago and ask them to do a Pap smear, but the healthcare provider told her she had a UTI and yeast infection without checking me down there. Patient reports she has not picked up her antibiotics yet. She would like someone to do a vaginal exam because she feels like she has a cut down there. When asked if she had tried to look at the area with a mirror patient reports the pain is on the inside. She also endorses mid-back and lower abdominal pain. Patient is also concerned because she has 3 bug bites her body, 1 on her back, 1 on her right upper shoulder, and 1 on her right upper chest. She reports she has not been itching them but got them 3 days ago when she was out on the trail. Patient denies chest pain, shortness a breath, other signs illness. Medical history includes asthma, high blood pressure, high cholesterol, and GERD. GENERAL: Well-appearing, well-nourished, and in no acute distress. HEAD: Normocephalic, atraumatic. CHEST: Clear to auscultation. ?No respiratory distress. HEART: Regular rate and rhythm.? NEURO: ?Alert and oriented x3. Patient screened in triage and initial orders placed.? ?Additional care and disposition to be based upon?diagnostic testing and treatment. <Esme Lyons APRN - Last Filed: 07/06/24 20:17> History of Present Illness HPI Narrative: Patient is a 59-year-old female presenting to the ED for concerns of hematuria for the past 3 days as well as pelvic pain, right-sided flank pain. She went to her primary care provider's office who initially prescribed her antibiotics and then to the urine culture. They called her yesterday and stated that she does not require antibiotics as her urine culture was sterile. She presents today for concerns of hematuria. Pain is well controlled not in any acute distress, denies any vaginal discharge, endorses pelvic pressure sensations and pelvic pain radiating to the right side. Denies any fever, chills, nausea, vomiting, abdominal pain, back pain, fever, chills. She states that she does have pain with urination and noticed drops of red blood intermittently. She states she has had 2 urinations without any bleeding earlier today. Was otherwise in her normal state of health, denies any trauma or injuries or instrumentation this area. <Tyler Mari MD - Last Filed: 07/06/24 23:23> Related Data Home medications: Home Medications Medication Instructions Recorded Confirmed albuterol sulfate 90 mcg/actuation 2 inh inhalation Q4H PRN Wheezing 03/23/23 03/23/23 aerosol inhaler atorvastatin 40 mg tablet 40 mg PO HS 03/23/23 03/23/23 calcium carbonate (Tums) 500 mg PO Q6H PRN Acid Reflux 03/23/23 03/23/23 lisinopril 40 mg tablet 40 mg PO HS 03/23/23 03/23/23 <Esme Lyons APRN - Last Filed: 07/06/24 20:17> Allergies/Adverse reactions: Allergies Allergy/AdvReac Type Severity Reaction Status Date / Time codeine Allergy Unknown Nausea and Verified 07/10/23 18:24 Vomiting meperidine Allergy Unknown Unknown Verified 07/10/23 18:24 nicotine AdvReac Swelling Verified 07/10/23 18:24 <Esme Lyons, DEJON - Last Filed: 07/06/24 20:17> Review of Systems Review of Systems: As reviewed above in HPI <Tyler Mari MD - Last Filed: 07/06/24 23:23> [facility] Past Medical History Medical History: Medical History Anxiety Asthma Depression Hypertension <Esme Jamison
--- NOTE | 2024-07-06 20:00 | PC.NURSE ---
Patient taken to US from waiting room.
[2024-07-06 20:08] LABS: Basophils Absolute Auto 0.1 K/mm3 (0.0-0.1); Basophils Percent Auto 0.8 % (0.2-1.2); Eosinophils Absolute Auto 0.2 K/mm3 (0-0.3); Eosinophils Percent Auto 3.7 % (0-4.4); Hematocrit 43.2 % (37.0-47.0); Hemoglobin 14.6 g/dL (12.0-15.0); Immature Granulocyte Absolute 0.02 K/mm3 (0.00-0.031); Immature Granulocyte Percent A 0.3 % (0-0.5); Lymphocytes Absolute Auto 3.22 K/mm3 (0.9-3.2); Mean Corpuscular HGB Conc 33.8 g/dl (32-36); Mean Corpuscular Hemoglobin 31.2 pg (26-34); Mean Corpuscular Volume 92.3 fl (80-100); Mean Platelet Volume 9.6 fl (7.4-10.4); Monocytes Absolute Auto 0.5 K/mm3 (0.1-0.6); Monocytes Percent Auto 7.8 % (2.6-8.5); Neutrophils Absolute Auto 2.5 K/mm3 (1.3-6.7); Neutrophils Percent Auto 38.4 % (45.5-73.1); Platelet Count Result 211 k/mm3 (150-375); Red Blood Count 4.68 M/mm3 (4.2-5.4); White Blood Count 6.6 K/mm3 (4.5-10.0)
[2024-07-06 20:19] LABS: INR 1.1; Prothrombin Time 14.8 Seconds (11.1-14.7)
[2024-07-06 20:20] LABS: Partial Thromboplastin Time 29.8 Seconds (22.3-36.8)
[2024-07-06 20:26] LABS: Alanine Aminotransferase 20 U/L (6-35); Albumin Level 4.2 g/dL (3.5-5.1); Alkaline Phosphatase 55 U/L (38-126); Anion Gap 7 mmol/L (4-12); Aspartate Amino Transferase 27 U/L (14-36); Bilirubin,Total 0.2 mg/dL (0.2-1.3); Blood Urea Nitrogen 21 mg/dL (7-17); Calcium 9.2 mg/dL (8.4-10.2); Carbon Dioxide 28 mmol/L (22-30); Chloride 105 mmol/L (98-107); Estimated CRCL calculation 67 ml/min; Estimated Glomerular Filt Rate > 60; Glucose 94 mg/dL (65-110); Potassium 3.7 mmol/L (3.4-5.0); Sodium 140 mmol/L (137-145)
[2024-07-06] MEDS: SODIUM CHLORIDE 0.9% IV 1,000 ML 999 ML IV CONT (21:08)
[2024-07-06 23:41] VITALS: BP 136/82; PULSE 83; RESP 15; O2SAT 100
== END 2024-07-06 23:42 | disposition home or self-care (01) ==
PROVIDERS: Preventive Medicine Aerospace Medicine; Registered Nurse; Emergency Provider Student in an Organized Health Care Education/Training Program
DX: N94.89 Other specified conditions associated with female genital organs and menstrual cycle (principal); N20.0 Calculus of kidney; R31.9 Hematuria, unspecified; J45.909 Unspecified asthma, uncomplicated; I10 Essential (primary) hypertension; E78.00 Pure hypercholesterolemia, unspecified; K21.9 Gastro-esophageal reflux disease without esophagitis; F41.8 Other specified anxiety disorders; F17.210 Nicotine dependence, cigarettes, uncomplicated
CPT/HCPCS: 36415; 74177; 76856; 80053; 81001; 83605; 85025; 85610; 85730; 86850; 86900; 86901; 87086; 87088; 96360; 99284; J7030; Q9967